=== PATIENT | female | born 1995 | race Caucasian/White ===

== ENCOUNTER 2017-04-03 12:40 | Outpatient (CLI) | payer OTHER ==
[~2017-04-03] VITALS: Ht 157.5 cm; Wt 65.6 kg
[2017-04-03] MEDS ORDERED: FER325 PO (13:04)
[2017-04-03] MEDS ORDERED: PRENAT PO (13:04)
[2017-04-03 13:05] VITALS: BP 110/59; PULSE 78; RESP 18; Ht 157.5 cm; Wt 65.6 kg
== END 2017-04-03 15:20 | disposition home or self-care (01) ==
LOC: OBT 12:40 → L-D 12:42 → OBT 15:20
PROVIDERS: ATTEND Obstetrics & Gynecology
DX: O26.893 Other specified pregnancy related conditions, third trimester (principal); Z3A.35 35 weeks gestation of pregnancy
CPT/HCPCS: G0463

== ENCOUNTER → 2017-04-03 | Outpatient (CLI) | payer OTHER ==
[~2017-04-03] MED LIST: FER325 PO; PRENAT PO
--- NOTE | 2017-04-03 16:10 | PN ---
Triage Information Date/Time April 03, 2017 Weeks of Gestation 35 weeks and 1 day : 1 Para: 0 Diabetes: none Hypertention: none Additional information 22 years old with IUP 35 weeks and 1 day presented with complaint of left lower chest wall pain that increased with breathing as well as some shortness of breath that currently resolved. Patient denies any fever or chills. Denies any leaking of fluid, vaginal bleeding, abdominal pain, decreased movement Denies any compensation during her course. Objective Heart Rate: 130's Contractions: None Exam General appearance: Alert and oriented 4 does not appear to be in any acute distress. Abdomen: Soft, gravid fundal height consistent with gestational age, nontender, no rebound tenderness, no rigidity NST: Category 1 Baseline: 135 occasional contractions on the monitor Cervix fingertip and long and high CV RRR Lungs: Clear to auscultation bilaterally Chest wall: There is point tenderness at about costochondral junction and the left at rib #7-8 Assessment/Plan IUP at 35 weeks and 1 day Point tenderness in the rib cage Exam consistent with costochondritis Episodes of shortness of breath resolved currently. Symptoms likely related to . Oxygen saturation during observation in triage was normal. Lung exam was benign and normal. Had contractions that resolved with hydration No evidence of l labor No cervical change noted NST: Category 1 Patient will be sent to emergency room for evaluation of the chest wall pain At this point she does not have any OB issue Strict labor precaution and kick counts discussed as well as follow-up within 24-48 hours after discharge from emergency room Return to triage as needed leaking of fluid, decreased movement. Recurrence of regular contractions or any other concerns. Patient verbalized understanding BARBARA NOGUERA MD Apr 03, 2017 16:09
== END | disposition home or self-care (01) ==
LOC: OBT 15:30
PROVIDERS: ATTEND Obstetrics & Gynecology
DX: O26.893 Other specified pregnancy related conditions, third trimester (principal); Z3A.35 35 weeks gestation of pregnancy; R07.89 Other chest pain; R06.02 Shortness of breath

== ENCOUNTER 2017-04-30 12:23 | Outpatient (CLI) | payer OTHER ==
[~2017-04-30] VITALS: Ht 157.5 cm; Wt 69.0 kg
--- NOTE | 2017-04-30 12:57 | RADRPT ---
PROCEDURE: US OB biophysical profile. CLINICAL INDICATION: evaluation, decreased movement TECHNIQUE: Multiple sonographic images of the pelvis were obtained. The images were reviewed on a PACS workstation. COMPARISON: No prior studies are available for comparison. FINDINGS: There is a single viable intrauterine gestation. Cardiac activity is present with 143 beats per min bernice. There is a vertex presentation. The placenta is posterior. There is no evidence of placental abruption. There is a normal amount of amniotic fluid with an MOE = 11.6 cm. Biophysical profile: movement 2/2 tone 2/2. breathing 2/2 MOE 2/2 Total 04/23 RPTAT: AA . IMPRESSION: Normal biophysical profile. Physician Dawson Date Time Electronically viewed and signed by Physician Dawson on 04/30/2017 12:56 /
[2017-04-30 13:26] VITALS: Ht 157.5 cm; Wt 69.0 kg
[2017-04-30 13:27] VITALS: BP 107/61; PULSE 82
--- NOTE | 2017-04-30 17:25 | PN ---
Triage Information Date/Time Reason for visit: DFM Weeks of Gestation 39 weeks /Para Diabetes: none Hypertention: none Objective Vital Signs Date Time Temp Pulse Resp B/P Pulse Ox O2 Delivery O2 Flow Rate FiO2 04/30/17 13:27 97.8 82 107/61 Heart Rate: 130's Contractions: None Exam Pelvic exam cervix closed 50% effaced vertex at -2 station Results/Medications Imaging Results Patient came to triage unit with a complaint of decreased movement biophysical profile 8 out of 8 reactive NST patient reassured discharge home with the recommendation to follow with the clinic return to the hospital for any obstetrical reason Disposition: Discharge NA MARIEE MD Apr 30, 2017 17:25
--- NOTE | 2017-04-30 17:49 | TRIAGE ---
OB Triage Datetime Report Generated by CPN: 04/30/2017 17:48 Datetime: 04/30/2017 17:12 Stage of : OB Triage Datetime: 04/30/2017 16:33 Labor Evaluation Frequency: IRREG Monitor Mode: External Duration (sec)2399: 50-60 Quality: Mild Pattern: Normal: <= 5 Contractions in 10 Minutes Resting Tone [place]: Relaxed Heart Rate FHR Baseline Rate: 135 Monitor Mode: External US Variability: Moderate 6-25 bpm Accelerations: 10X10 Decelerations: None Category: Category I Pain Assessment Pain Scale: 0 Pain Presence: None/Denies Pain Type: N/A Pain Goal: 3 Pain Relief Measures: Comfort Measures Datetime: 04/30/2017 15:33 Labor Evaluation Frequency: 6-8 Monitor Mode: External Duration (sec)2399: 40-50 Quality: Mild Pattern: Normal: <= 5 Contractions in 10 Minutes Resting Tone [place]: Relaxed Heart Rate FHR Baseline Rate: 135 Monitor Mode: External US Variability: Moderate 6-25 bpm Accelerations: 10X10 Decelerations: None Category: Category I Pain Assessment Pain Scale: 0 Pain Presence: None/Denies Pain Type: N/A Pain Goal: 3 Pain Relief Measures: Comfort Measures Datetime: 04/30/2017 14:32 Labor Evaluation Frequency: 4-5 Monitor Mode: External Duration (sec)2399: 50-60 Quality: Mild Pattern: Normal: <= 5 Contractions in 10 Minutes Resting Tone [place]: Relaxed Heart Rate FHR Baseline Rate: 135 Monitor Mode: External US Variability: Moderate 6-25 bpm Accelerations: 10X10 Decelerations: None Category: Category I Pain Assessment Pain Scale: 0 Pain Presence: None/Denies Pain Type: N/A Pain Goal: 3 Datetime: 04/30/2017 13:53 Vaginal Exam Dilatation (cms): 0.0 Effacement (%): 50 Station: -2 Exam By: Panda KASEY Vaginal Bleeding: None Cervix, Consistency: Soft Cervix, Position: Posterior Presentation 'A': Cephalic Datetime: 04/30/2017 13:23 Stage of : OB Triage Assessment Type: Triage Maternal Assessment Level of Consciousness: Fully Conscious DTR's/Clonus: DTRs 2+; No Clonus Headache: Denies Blurred Vision: No Respiratory Effort: Unlabored; Regular Rhythm; Equal Expansion Breath Sounds, Left: Clear and Equal Breath Sounds, Right: Clear and Equal Nausea/Vomiting: Denies RUQ Epigastric Pain: Denies Facial Edema: None Temperature Route: Axillary Fall Risk Assessment History of Falling: (0) No Secondary Diagnosis: (0) No Ambulatory Aid: (0) Bedrest/Nurse Assist IV Therapy: (0) No Gait: (0) Normal/Bedrest/Immobile Mental Status: (0) Oriented to Own Ability Fall Score: 0 Fall Risk Score Definition: No Risk: No action required Labor Evaluation Frequency: 0 Monitor Mode: External Resting Tone [place]: Relaxed Heart Rate FHR Baseline Rate: 135 Monitor Mode: External US Variability: Moderate 6-25 bpm Accelerations: 10X10 Decelerations: None Category: Category I Pain Assessment Pain Scale: 0 Pain Presence: None/Denies Pain Type: N/A Pain Goal: 3 Pain Relief Measures: Comfort Measures Datetime: 04/30/2017 13:22 Time of Arrival: 04/30/2017 12:05 EGA: 39.0 Arrived By: Ambulatory Arrived From: Home Chief Complaint: DFM, DENIES BLEEDING, LEAKING OR UC'S Movement: Decreased Contractions: Denies/Absent Rupture of Membranes: Denies Vaginal Discharge: Denies Recent Sexual Intercouse: Denies Abdominal Trauma: Not Applicable Patient Complaints: None Time Provider Notified: 04/30/2017 17:12 Provider Notified: JAYLENE Initial Plan: MONITOR, BPP Datetime: 04/03/2017 14:00 Stage of : OB Triage Maternal Assessment Level of Consciousness: Fully Conscious Labor Evaluation Frequency: OCCASIONAL Monitor Mode: External Quality: Mild Resting Tone G[place]: Relaxed Heart Rate FHR Baseline Rate: 135 Monitor Mode: External US Variability: Moderate 6-25 bpm Accelerations: 15X15 Decelerations: None Pain Assessment Pain Scale: 0 Pain Goal: 3 Membrane Status: Intact Vaginal Bleeding: None Datetime: 04/03/2017 13:53 Vaginal Exam Dilatation (cms): 0.5 Effacement (%): 30 Station: -2 Exam By: A GHUKASYAN Datetime: 04/03/2017 13:01 Assessment Type: Triage Maternal Assessment Level of Consciousness: Fully Conscious DTR's/Clonus: DTRs 2+; No Clonus Headache: Denies Blurred Vision: No Respiratory Effort: Unlabored; Regular Rhythm; Equal Expansion Breath Sounds, Left: Clear and Equal Breath Sounds, Right: Clear and Equal Nausea/Vomiting: Denies RUQ Epigastric Pain: Denies Lower Extremities Edema: None Degree: None Upper Extremities Edema: None Degree: None Facial Edema: None Fall Risk Assessment History of Falling: (0) No Secondary Diagnosis: (0) No Ambulatory Aid: (0) Bedrest/Nurse Assist IV Therapy: (0) No Gait: (0) Normal/Bedrest/Immobile Mental Status: (0) Oriented to Own Ability Fall Score: 0 Fall Risk Score Definition: No Risk: No action required Datetime: 04/03/2017 12:59 Time of Arrival: 04/03/2017 12:37 EGA: 35.1 Arrived By: Ambulatory Arrived From: Home Chief Complaint: PT HERE C/O RIGHT RIB PAIN AND CONSTIPATION Movement: Present Contractions: Denies/Absent Rupture of Membranes: Denies Vaginal Discharge: Denies Recent Sexual Intercouse: Denies Abdominal Trauma: Not Applicable Patient Complaints: None Time Provider Notified: 04/03/2017 13:00 Provider Notified: ARDALAN Initial Plan: NST Datetime: 04/03/2017 12:56 Monitor Mode: External Monitor Mode: External US
== END 2017-04-30 17:40 | disposition home or self-care (01) ==
LOC: OBT 12:23 → L-D 12:26 → OBT 17:40
PROVIDERS: ATTEND Obstetrics & Gynecology
DX: O36.8130 Decreased fetal movements, third trimester, not applicable or unspecified (principal); Z3A.39 39 weeks gestation of pregnancy
CPT/HCPCS: 76818; Z7500; G0463

== ENCOUNTER 2017-05-01 16:31 | Inpatient (IN) | payer OTHER ==
[~2017-05-01] VITALS: Ht 157.5 cm; Wt 68.2 kg
[2017-05-01 17:03] VITALS: Ht 157.5 cm; Wt 68.2 kg
[2017-05-01 17:04] VITALS: BP 116/70; PULSE 100; RESP 18
[2017-05-01] MEDS ORDERED: LACTATED RINGER'S 1,000 ML IV PRN (18:56)
[2017-05-01] MEDS ORDERED: IBUPROFEN 600 MG TAB PO PRN (19:00)
[2017-05-01] MEDS ORDERED: OXYTOCIN 30 UNITS/LR 500 ML IV PRN (19:00)
[2017-05-01] MEDS ORDERED: LIDOCAINE 1% (MPF) 30 ML INJ INJ PRN (19:00)
[2017-05-01] MEDS ORDERED: BUTORPHANOL 2 MG INJ IV PRN (19:00)
[2017-05-01] MEDS ORDERED: MISOPROSTOL 200 MCG TAB PR PRN (19:00)
[2017-05-01] MEDS ORDERED: METHYLERGONOVINE 0.2 MG INJ IM PRN (19:00)
[2017-05-01] MEDS ORDERED: CARBOPROST 250 MCG INJ IM PRN (19:00)
[2017-05-01] MEDS ORDERED: OXYTOCIN 30 UNITS/LR 500 ML IV SCH ×3 (19:00→20:30)
[2017-05-01] MEDS ORDERED: AMPICILLIN 2 GM/NS (PMX) 100 ML IV ONE (19:00)
[2017-05-01] MEDS: LACTATED RINGER'S 1,000 ML IV SCH (19:23)
[2017-05-01] MEDS ORDERED: AMPICILLIN 2 GM/NS (PMX) 100 ML ONE (21:04)
[2017-05-01] MEDS ORDERED: AMPICILLIN 2 GM/NS (PMX) 100 ML IVPB ONE (21:30)
[2017-05-01 21:40] LABS: BASOPHILS % 0.1 % (0.0-2.0); EOSINOPHILS % 0.4 % (0.0-7.0); HEMATOCRIT 37.3 % (37.0-47.0); LYMPHOCYTES # 1.9 10^3/ul (0.8-2.9); LYMPHOCYTES % 17.9 % (18.0-55.0); MEAN CORPUSCULAR HEMOGLOBIN 33.3 pg (29.0-33.0); MEAN CORPUSCULAR HGB CONC 34.9 g/dl (32.0-37.0); MEAN CORPUSCULAR VOLUME 95.6 fl (72.0-104.0); MONOCYTE # 0.7 10^3/ul (0.3-0.9); MONOCYTES % 6.6 % (0.0-13.0); NEUTROPHILS % 73.1 % (30.0-74.0); PLATELET COUNT 177 10^3/UL (140-415); RED CELL DISTRIBUTION WIDTH 13.2 % (11.5-14.5); WHITE BLOOD COUNT 10.8 10^3/ul (4.8-10.8)
[2017-05-01] MEDS ORDERED: AMPICILLIN 1 GM/NS (PMX) 50 ML IV SCH (22:00)
[2017-05-01 22:01] LABS: INR 0.88; PARTIAL THROMBOPLASTIN TIME 25.6 Sec (25.0-35.0); PROTIME 11.9 Sec (12.2-14.2); PT RATIO 0.9
[2017-05-02] MEDS: AMPICILLIN 1 GM/NS (PMX) 50 ML IVPB SCH ×6 (02:32→17:25)
[2017-05-02] MEDS: LACTATED RINGER'S 1,000 ML IV SCH ×3 (02:33→16:37)
--- NOTE | 2017-05-02 09:53 | TRIAGE ---
OB Triage Datetime Report Generated by CPN: 05/01/2017 18:08 Datetime: 05/01/2017 17:16 Dilatation (cms): 1.0 Effacement (%): 40 Station: -3 Exam By: SS Nitrazine: Positive Datetime: 05/01/2017 17:01 Assessment Type: Triage Level of Consciousness: Fully Conscious DTR's/Clonus: DTRs 2+; No Clonus Headache: Denies Blurred Vision: No Respiratory Effort: Unlabored; Regular Rhythm; Equal Expansion Breath Sounds, Left: Clear and Equal Breath Sounds, Right: Clear and Equal Nausea/Vomiting: Denies RUQ Epigastric Pain: Denies Lower Extremities Edema: None Degree: None Upper Extremities Edema: None Degree: None Facial Edema: None History of Falling: (0) No Secondary Diagnosis: (0) No Ambulatory Aid: (0) Bedrest/Nurse Assist IV Therapy: (0) No Gait: (0) Normal/Bedrest/Immobile Mental Status: (0) Oriented to Own Ability Fall Score: 0 Fall Risk Score Definition: No Risk: No action required Datetime: 05/01/2017 16:58 Time of Arrival: 05/01/2017 16:30 EGA: 39.1 Arrived By: Ambulatory Arrived From: Home Chief Complaint: PT HERE C/O POSSIBLE SROM AT 1400 Movement: Present Contractions: Denies/Absent Rupture of Membranes: Ruptured Vaginal Discharge: Present Recent Sexual Intercouse: Denies Abdominal Trauma: Not Applicable Patient Complaints: None Time Provider Notified: 05/01/2017 17:29 Provider Notified: JAYLENE Initial Plan: EFM, ROM PLUS, BPP Datetime: 05/01/2017 16:55 Monitor Mode: External Monitor Mode: External US
--- NOTE | 2017-05-02 09:54 | RADRPT ---
PROCEDURE: US OB. CLINICAL INDICATION: Contractions TECHNIQUE: Pelvic ultrasound performed for biophysical profile. COMPARISON: 04/30/2017 FINDINGS: Single intrauterine gestation present with heart rate at 147 beats per minute. Presentation is ceph alic. Placenta is posterior, grade II. Biophysical profile score is 8/8 (breathing=2, movement=2, tone =2, fluid volume=2). Amniotic fluid volume is within normal limits, with MOE = 14.6 cm. RPTAT:HJJR IMPRESSION: Biophysical profile score 8/8. Amniotic fluid index 14.6 cm, previously measured at 11.6 cm on the study of 04/30/2017. Physician Jacquelyn Date Time Electronically viewed and signed by Physician Jacquelyn on 05/01/2017 18:48 JR/
[2017-05-02] MEDS ORDERED: FENTAnyl 2MCG/ML-ROPIV 0.2% 100 ML ONE (11:54)
[2017-05-02] MEDS ORDERED: FENTAnyl 2MCG/ML-ROPIV 0.2% 100 ML BAG EPI SCH (13:30)
[2017-05-02] MEDS ORDERED: NALOXONE (0.4 MG/ML) INJ IV PRN (13:30)
--- NOTE | 2017-05-02 18:26 | LDN ---
Date/Time of Note Date/Time of Note DATE: 05/02/17 TIME: 18:23 Delivery Summary Normal spontaneous vaginal delivery of a baby boy from OA position shoulders delivered without any difficulty rest of the baby's body followed cord clamped after stopped pulsation placenta is spontaneous expulsion inspected complete blood loss 250 mm patient sustained very small perineal laceration repaired with 3-0 chromic catgut Placenta Delivered: Spontaneously Meconium: none Episiotomy: No Perineal laceration: 1 Laceration repair: Small first-degree perineal laceration repaired with 3-0 chromic catgut Anesthesia type: Epidural Estimated blood loss: 250 Sponge & Needle done & correct: Yes All needle counts correct: Yes Any foreign bodies felt in the: No Problems: Delivery Information Sex Infant Sex: male Apgars 1 Minute: 8 5 Minute: 9 Suctioning Nose & mouth suctioned at delores: Yes Delee suction performed: No Umbilical Cord Umbilical cord with: 3 Vessels Cord presentations: nuchal cord Cord Blood was obtained: Yes NA MARIEE MD May 02, 2017 18:26
--- NOTE | 2017-05-02 18:31 | HP ---
Date/Time of Note Date/Time of Note DATE: 05/02/17 TIME: 18:26 OB - History Hx of Present Free Text/Dictation This is 22 years old female 1 para 0 39 weeks and 2 days with a EDC of May 07, 2017 admitted to [facility] in labor pelvic examination on admission cervical dilatation 2 cm effacement 80% vertex at -2 station heart category 1 Chief Complaint: Labor pain Estimated Due Date: May 07, 2017 : 1 Para: 0 Care: Good Care Ultrasounds: Normal mid trimester US Obstetrical Complications: None Medical Complications: None Past Family/Social History * Past Medical, Surgical, Family and Obstetric Histories reviewed from chart. Rubella: immune RPR/VDRL: Negative GBS Status: Negative HBsAG: Negative OB Admission Exam Vital Signs Vital Signs Vital Signs Date Time Temp Pulse Resp B/P Pulse Ox O2 Delivery O2 Flow Rate FiO2 05/01/17 17:04 98.3 100 18 116/70 97 Room Air Physical Exam HEENT: WNL Heart: Rhythm Normal Lungs: Clear, Equal Abdomen: WNL Extremities: Normal Reflexes: Normal Cervical Dilatation: 2cm Effacement: Other Station: -2 Membranes: Intact Heart Rate: 130's Accelerations: Accelerations Present Decelerations: Early Decelerations Varibility: Moderate Contractions on Admission: < 5 Minutes Apart Intensity: Moderate Last 72 hours Lab Results CBC & BMP 05/01/17 18:30 OB Assessment/Plan Reason for admission: other (39 weeks 2 days in labor) Plan: Other (22 years old 1 para 0 EDC May 07, 2017 admitted to [facility] in labor examination on admission cervix 2 cm dilated 80% effaced vertex at -2 stay patient transferred to L&D for expecting management for delivery) NA MARIEE MD May 02, 2017 18:31
[2017-05-02] MEDS ORDERED: DIPHENHYDRAMINE 50 MG INJ IV PRN (21:00)
[2017-05-02 21:05] VITALS: BP 100/61; PULSE 114; RESP 16
[2017-05-02] MEDS: OXYTOCIN 30 UNITS/LR 500 ML IV SCH (21:50)
[2017-05-02 21:52] LABS: BARBITURATES Negative (NEGATIVE); BENZODIAZEPINES Negative (NEGATIVE); CANNABINOIDS Negative (NEGATIVE); COCAINE Negative (NEGATIVE); OPIATES Negative (NEGATIVE)
[2017-05-02] MEDS ORDERED: LANOLIN 7 GM TUBE TOP PRN (22:00)
[2017-05-02] MEDS ORDERED: ONDANSETRON 4 MG INJ IV PRN (22:00)
[2017-05-02] MEDS ORDERED: DIBUCAINE 1% 30 GM OINT PR PRN (22:00)
[2017-05-02] MEDS ORDERED: OXYCODONE/ASPIRIN (4.88/325) TAB PO PRN ×2 (22:00)
[2017-05-02] MEDS ORDERED: BENZOCAINE 20% 56 ML SPRAY TOP PRN (22:00)
[2017-05-02] MEDS ORDERED: HYDROCODONE/APAP (5/325) TAB PO PRN ×2 (22:00)
[2017-05-02] MEDS ORDERED: WITCH HAZEL/GLYCERIN PAD PR PRN (22:00)
[2017-05-02] MEDS ORDERED: ACETAMINOPHEN 325 MG TAB PO PRN (22:00)
[2017-05-03] VITALS: BP 109/64; PULSE 115; RESP 17
[2017-05-03] MEDS: IBUPROFEN 600 MG TAB PO SCH ×5 (00:47→23:45)
[2017-05-03] MEDS: OXYTOCIN 30 UNITS/LR 500 ML IV SCH (01:50)
[2017-05-03 04:00] VITALS: BP 107/66; PULSE 102; RESP 17
[2017-05-03 08:00] VITALS: BP 109/63; PULSE 97; RESP 18
--- NOTE | 2017-05-03 09:36 | PN ---
Date/Time of Note Date/Time of Note DATE: 05/03/17 TIME: 09:36 OB Subjective Subjective Subjective day 1 Afebrile VSS Abdomen soft uterus firm lochia moderate extremities normal Laboratory Tests Test 05/02/17 21:00 Urine Opiates Screen Negative Urine Barbiturates Negative Urine Amphetamines Screen Negative Urine Benzodiazepines Screen Negative Urine Cocaine Screen Negative Urine Cannabinoids Negative Current Medications Medications (Trade) Dose Ordered Sig/Luis Route PRN Reason Start Time Stop Time Status Last Admin Dose Admin Lactated Ringer's 1,000 ml @ 125 mls/hr Q8H IV 05/01/17 18:56 05/02/17 21:55 DC 05/02/17 16:37 Ampicillin 100 ml @ 100 mls/hr ONCE ONCE IV 05/01/17 19:00 05/01/17 19:00 DC Ampicillin (Ampicillin 1 Gm/ NS (Pmx)) 50 ml @ 100 mls/hr Q4H IV 05/01/17 22:00 05/01/17 22:00 DC Butorphanol Tartrate (Stadol) 2 mg Q2H PRN IV PAIN 05/01/17 19:00 05/02/17 21:55 DC 05/02/17 08:11 Lidocaine 30 ml 30 ml ONCE PRN INJ EPISIOTOMY/TEARING 05/01/17 19:00 05/02/17 21:55 DC Oxytocin/Lactated Ringer's 500 ml @ 125 mls/hr ONCE -MAY REPEAT X1 IV 05/01/17 19:00 05/02/17 21:55 DC Oxytocin/Lactated Ringer's 500 ml @ 125 mls/hr ONCE IV 05/01/17 19:00 05/02/17 21:55 DC 05/02/17 18:23 Ibuprofen 600 mg 600 mg ONCE PRN PO Mild Pain (Pain Score 1-3) 05/01/17 19:00 05/02/17 21:56 DC Lactated Ringer's 1,000 ml @ 2,000 mls/hr Q30M PRN IV PRE-EPIDURAL BOLUS 05/01/17 18:56 05/02/17 21:56 DC 05/02/17 11:57 Oxytocin/Lactated Ringer's 500 ml @ 0 mls/hr ONCE PRN IV For Hemorrhage Management 05/01/17 19:00 05/02/17 21:57 DC Methylergonovine Maleate (Methergine) 0.2 mg ONCE PRN IM VAGINAL BLEEDING 05/01/17 19:00 05/02/17 21:57 DC Carboprost Tromethamine (Hemabate) 250 mcg ONCE PRN IM VAGINAL BLEEDING 05/01/17 19:00 05/02/17 21:57 DC Misoprostol 1000 mcg 1,000 mcg ONCE PRN HI VAGINAL BLEEDING 05/01/17 19:00 05/02/17 21:57 DC Ampicillin 50 ml @ 100 mls/hr Q4 IVPB 05/02/17 00:30 05/02/17 21:56 DC 05/02/17 17:25 Oxytocin/Lactated Ringer's 500 ml @ 0 mls/hr Q0M IV 05/01/17 20:30 05/02/17 21:56 DC 05/01/17 22:03 Ampicillin 100 ml @ 100 mls/hr ONCE ONCE IVPB 05/01/17 21:30 05/01/17 22:29 DC 05/01/17 21:15 Ampicillin 100 ml @ ud STK-MED ONCE .ROUTE 05/01/17 21:04 05/01/17 21:05 DC Fentanyl/ Ropivacaine 100 ml @ ud STK-MED ONCE .ROUTE 05/02/17 11:54 05/02/17 11:55 DC Naloxone HCl (Narcan) 0.1 mg Q2M PRN IV FOR RESP RATE 8 OR LESS 05/02/17 13:30 05/02/17 21:56 DC Fentanyl/ Ropivacaine 100 ml EPIDURAL INFUSION EPI 05/02/17 13:30 05/02/17 21:56 DC Diphenhydramine HCl 25 mg 25 mg Q6H PRN IV ITCHING 05/02/17 21:00 05/02/17 22:15 Oxytocin/Lactated Ringer's 500 ml @ 125 mls/hr Q4H IV 05/02/17 21:50 05/03/17 05:49 DC Ibuprofen (Motrin) 600 mg Q6 PO 05/03/17 00:00 05/03/17 05:52 Acetaminophen (Tylenol Tab) 650 mg Q4H PRN PO PAIN LEVEL 1-5 05/02/17 22:00 05/02/17 22:15 Acetaminophen/ Hydrocodone Bitart ([place] (5/325)) 1 tab Q4H PRN PO PAIN LEVEL 1-5 05/02/17 22:00 Acetaminophen/ Hydrocodone Bitart ([place] (5/325)) 2 tab Q4H PRN PO PAIN LEVEL 6-10 05/02/17 22:00 Oxycodone/Aspirin (Percodan) 1 tab Q3H PRN PO PAIN LEVEL 1-5 05/02/17 22:00 Oxycodone/Aspirin (Percodan) 2 tab Q3H PRN PO PAIN LEVEL 6-10 05/02/17 22:00 Ondansetron HCl (Zofran Inj) 4 mg Q6H PRN IV NAUSEA AND/OR VOMITING 05/02/17 22:00 Senna/Docusate Sodium (Senokot-S) 1 tab BID PO 05/03/17 09:00 Witch Latasha/ Glycerin (Tucks Pads) 1 pad BEDSIDE MEDICATION PRN HI HEMORRHOID/EPISIOTMY PAIN 05/02/17 22:00 05/03/17 00:46 Benzocaine (Dermoplast [place]) 1 spray BEDSIDE MEDICATION PRN TOP HEMORRHOID/EPISIOTMY PAIN 05/02/17 22:00 05/03/17 00:46 Dibucaine (Nupercainal) 1 applic BEDSIDE MEDICATION PRN HI HEMORRHOID/EPISIOTMY PAIN 05/02/17 22:00 Lanolin (Mov-E-Pviate) 1 applic BEDSIDE MEDICATION PRN TOP BEDSIDE FOR JAY TO NIPPLES 05/02/17 22:00 05/03/17 00:46 Measles/Mumps/ Rubella Vaccine Live (Mmr Ii Vaccine) 0.5 ml ONCE ONCE SC* 05/04/17 09:00 05/04/17 09:01 NA MARIEE MD May 03, 2017 09:36
[2017-05-03 09:43] LABS: BASOPHILS % 0.2 % (0.0-2.0); EOSINOPHILS # 0.1 10^3/ul (0.0-0.5); EOSINOPHILS % 0.8 % (0.0-7.0); HEMATOCRIT 29.6 % (37.0-47.0); HEMOGLOBIN 10.2 g/dl (12.0-16.0); LYMPHOCYTES # 2.1 10^3/ul (0.8-2.9); LYMPHOCYTES % 17.8 % (18.0-55.0); MEAN CORPUSCULAR HEMOGLOBIN 33.4 pg (29.0-33.0); MEAN CORPUSCULAR HGB CONC 34.5 g/dl (32.0-37.0); MEAN PLATELET VOLUME 10.5 fl (7.4-10.4); MONOCYTE # 0.8 10^3/ul (0.3-0.9); MONOCYTES % 6.7 % (0.0-13.0); NEUTROPHILS % 73.6 % (30.0-74.0); PLATELET COUNT 138 10^3/UL (140-415); RED BLOOD COUNT 3.05 10^6/ul (4.20-5.40); RED CELL DISTRIBUTION WIDTH 13.5 % (11.5-14.5); WHITE BLOOD COUNT 11.7 10^3/ul (4.8-10.8)
[2017-05-03] MEDS: SENNA/DOCUSATE NA (8.6MG/50MG) TAB PO SCH ×2 (09:59→20:57)
[2017-05-03 16:00] VITALS: BP 112/62; PULSE 82; RESP 18
[2017-05-03 20:00] VITALS: BP 100/57; PULSE 100; RESP 17
[2017-05-04 03:45] VITALS: BP 103/58; PULSE 94; RESP 16
[2017-05-04] MEDS: IBUPROFEN 600 MG TAB PO SCH ×2 (05:33→11:50)
[2017-05-04 08:00] VITALS: BP 103/63; PULSE 89; RESP 16
[2017-05-04] MEDS: SENNA/DOCUSATE NA (8.6MG/50MG) TAB PO SCH (08:45)
[2017-05-04] MEDS ORDERED: MEASLES,MUMPS,RUBELLA VACCINE INJ SC* ONE (09:00)
--- NOTE | 2017-05-04 12:56 | PD.PPDC ---
AREA FIELD PERSON Discharge Instruction Condition Patient Condition: Good Diet Diet: Resume Regular Diet Activity/Restrictions Activity: Normal Activity May Shower Restrictions: No Exercising No Lifting No Driving No Sexual Activity Nothing in the Vagina No [place] No Tampons, douche Follow-up Follow-up with Physician: Week/Weeks Provider Information: instructions given recommended to make appointment to be seen at the clinic in 2 weeks Return to clinic for CONTRACTS DIRECTOR Instructions: Fever greater than 101 Chills Worsening abdominal pain Excessive Vaginal Bleeding More than 2 pads per hour Unable to tolerate diet OB Instructions: Breast Tenderness Depression Blurried Vision Headache NA MARIEE MD May 04, 2017 12:56
--- NOTE | 2017-05-04 12:59 | DS ---
Date/Time of Note Date/Time of Note DATE: 05/04/17 TIME: 12:57 Discharge Summary Admission/Discharge Info Admit Date/Time May 01, 2017 at 17:40 Discharge Date/Time May 04 2017 at 1300 Discharge Diagnosis Post normal vaginal delivery day 2 Patient Condition: Good Procedures Normal vaginal delivery Hx of Present Illness Term in labor Hospital Course Satisfactory uneventful Home Meds Reported Medications Ferrous Sulfate* (Ferrous Sulfate*) 325 Mg Tabec, 325 MG PO DAILY, TAB 04/03/17 Multivit/Min/Fol Ac/Iron/Pren* ( S*) 1 Tab Tab, 1 TAB PO DAILY, TAB 04/03/17 Follow-up Plan instructions given recommended to make appointment to be seen at the clinic in 2 weeks Primary Care Provider [facility] Time spent on discharge: < 30 minutes NA MARIEE MD May 04, 2017 12:59
== END 2017-05-04 15:11 | disposition home or self-care (01) | DRG 775 ==
LOC: OBT 16:31 → L-D 16:32 → OBT 17:40 → PP1 05-02 21:00
PROVIDERS: ADMIT Obstetrics & Gynecology; ATTEND Obstetrics & Gynecology
PROC: 3E033VJ Introduction of Other Hormone into Peripheral Vein, Percutaneous Approach (ICD-10-PCS; 2017-05-01)
PROC: 10E0XZZ Delivery of Products of Conception, External Approach (ICD-10-PCS; principal; 2017-05-02)
PROC: 0HQ9XZZ Repair Perineum Skin, External Approach (ICD-10-PCS; 2017-05-02)
DX: O70.0 First degree perineal laceration during delivery (principal); O69.81X0 Labor and delivery complicated by cord around neck, without compression, not applicable or unspecified; Z3A.39 39 weeks gestation of pregnancy; Z37.0 Single live birth
CPT/HCPCS: 62319; 76818; 80307; 84112; 85025; 85610; 85730; 86592; 86900; 86901; 87340; G0463; J0290; J0595; J1200; J2590; J3010; J7120

== ENCOUNTER 2019-03-29 00:13 | Emergency (ER) | payer OTHER ==
[~2019-03-29] VITALS: Ht 157.5 cm; Wt 59.8 kg
[2019-03-29 00:18] VITALS: BP 130/84; PULSE 99; RESP 20; Ht 157.5 cm; Wt 59.8 kg
[2019-03-29] MEDS ORDERED: CYCL10TA7 PO (01:52)
[2019-03-29] MEDS ORDERED: IBUP-1542 PO (01:52)
[2019-03-29] MEDS ORDERED: IBUPROFEN 600 MG TAB PO ONE (02:00)
[2019-03-29] MEDS ORDERED: CYCLOBENZAPRINE 10 MG TAB PO ONE (02:00)
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
== END 2019-03-29 02:23 | disposition home or self-care (01) ==
LOC: FTE 00:13
DX: S80.12XA Contusion of left lower leg, initial encounter (principal); M62.838 Other muscle spasm; V49.49XA Driver injured in collision with other motor vehicles in traffic accident, initial encounter
CPT/HCPCS: Z7502; Z7610; 99283